=== PATIENT | female | born 1980 | race Caucasian/White ===

== ENCOUNTER 2016-10-06 02:31 | Emergency (ER) | payer BC ==
[~2016-10-06 02:31] MED LIST: NO MEDICATIONS
== END 2016-10-06 03:41 | disposition home or self-care (01) ==
LOC: SED 02:31
DX: T40.1X1A Poisoning by heroin, accidental (unintentional), initial encounter (principal); T43.621A Poisoning by amphetamines, accidental (unintentional), initial encounter; F11.20 Opioid dependence, uncomplicated; F15.20 Other stimulant dependence, uncomplicated; F17.200 Nicotine dependence, unspecified, uncomplicated
CPT/HCPCS: 99282